=== PATIENT | male | born 1985 | race African-American/Black ===

== ENCOUNTER 2019-04-30 11:53 | Emergency (ER) | payer MEDICAID ==
[~2019-04-30] VITALS: Ht 175.3 cm; Wt 73.0 kg
[2019-04-30] MEDS ORDERED: SODIUM CHLORIDE 0.9% 1,000 ML IV ONE ×2 (13:03→16:15)
[2019-04-30] MEDS ORDERED: ONDANSETRON HCL 4MG/2ML INJ IV STA (13:03)
[2019-04-30] MEDS ORDERED: MORPHINE SULFATE 4 MG/ML CPJ (NOT FOR IM USE) IV ONE (13:45)
[2019-04-30 13:51] VITALS: BP 114/62
[2019-04-30 14:11] LABS: BASOPHILS % 0.6 % (0.0-2.0); EOSINOPHILS % 0.4 % (0.0-5.0); HEMATOCRIT. 41.9 % (42.0-52.0); HEMOGLOBIN. 14.1 g/dL (14.0-18.0); LYMPHOCYTES % 11.3 % (20.0-50.0); MEAN CORPUSCULAR HEMOGLOBIN 28.9 pg (28.0-32.0); MEAN CORPUSCULAR VOLUME 85.8 fL (80.0-94.0); MEAN PLATELET VOLUME 7.7 fl (7.4-10.4); MONOCYTES % 2.6 % (2.0-8.0); NEUTROPHILS % 85.1 % (40.0-76.0); PLATELET 317 x1000/uL (130-400); RED BLOOD CELL COUNT 4.89 mill/uL (4.7-6.1); RED CELL DISTRIBUTION WIDTH 15.1 % (11.6-14.6)
[2019-04-30 14:18] LABS: CHLORIDE 109 mEq/L (98-107)
[2019-04-30 14:19] LABS: PROTHROMBIN TIME 10.3 sec (9.6-11.0)
[2019-04-30 14:24] LABS: ETHANOL BLOOD < 10 mg/dL
[2019-04-30] MEDS ORDERED: DIATR MEGLU/DIATRIZOATE SOLN 120ML ONE (14:43)
[2019-04-30 17:23] LABS: CLARITY URINE CLEAR (CLEAR); COLOR URINE YELLOW (YELLOW); KETONES URINE NEGATIVE (NEGATIVE); LEUKOCYTE ESTERASE URINE NEGATIVE (NEGATIVE); NITRITE URINE NEGATIVE (NEGATIVE); OCCULT BLOOD URINE NEGATIVE (NEGATIVE); PH URINE 8.5 (4.5-8.0); PROTEIN URINE NEGATIVE (NEGATIVE); SPECIFIC GRAVITY URINE 1.022 (1.005-1.030); UROBILINOGEN URINE 0.2 E.U./dL (0.2-1.0)
[2019-04-30 17:39] LABS: *AMPHETAMINES SCREEN URINE NEGATIVE (NEGATIVE); *BARBITURATES SCREEN URINE NEGATIVE (NEGATIVE); *BENZODIAZEPINES SCREEN URINE NEGATIVE (NEGATIVE)
[2019-04-30 17:40] LABS: *COCAINE SCREEN URINE NEGATIVE (NEGATIVE); CANNABINOID URINE SCREEN PRESUMTIVE POSITIVE (NEGATIVE); METHADONE URINE SCREEN NEGATIVE (NEGATIVE); OPIATES URINE SCREEN PRESUMTIVE POSITIVE (NEGATIVE); PHENCYCLIDINE URINE SCREEN NEGATIVE (NEGATIVE)
== END 2019-04-30 18:52 | disposition home or self-care (01) ==
LOC: ER 11:53
DX: R10.84 Generalized abdominal pain (principal); R11.2 Nausea with vomiting, unspecified; F12.10 Cannabis abuse, uncomplicated; R03.0 Elevated blood-pressure reading, without diagnosis of hypertension; F11.10 Opioid abuse, uncomplicated
CPT/HCPCS: 36415; 74176; 80053; 80305; 80320; 81003; 83690; 85025; 85610; 96361; 96374; 96375; 99284; J2270; J2405; J7030; Q9963; Z7610; G0480